=== PATIENT | male | born 1960 | race Caucasian/White ===

== ENCOUNTER 2018-04-20 06:36 | Day surgery (SDC) | payer OTHER ==
--- NOTE | 2018-04-04 15:27 | GHP ---
DATE OF ADMISSION: 04/20/2018 DATE OF SURGERY: The patient will be an a.m. admission for surgery at [facility] on April 20, 2018. PROBLEM: Left hip arthritis. HISTORY OF PRESENT ILLNESS: The patient is a 58-year-old man admitted for a left total hip arthropla sty. He has severe bilateral hip degenerative arthritis. About 4 weeks ago, he was scheduled for a left total hip arthroplasty by Dr. Yang. That surgery had to be canceled because of a skin abno rmality in the flexor crease of the hip joint. Dr. Yang did not think he is a candidate for ant erior hip replacement. He has had progressive pain in both hips for the past 1-1/2 years. Both hips have been very painful for the past 3 months. He is having daily pain and night pain. Walking and standing are painful. His activities are very limited. He is using ibuprofen daily. He has trouble putting on his shoes and socks. He tried 9 months of physical therapy, but it did not help. He has had 3 cortisone injections in the left hip, which helped for a few months. He has failed nonsurgica l treatment. He is admitted for a left total hip arthroplasty. He is going to need to have the othe r hip done as well. PAST MEDICAL HISTORY: He is treated for elevated cholesterol and hypertension. No history of heart disease, stents, DVT, hepatitis, MRSA staph infections, sleep apnea, or bleeding disorders. CURRENT MEDICATIONS: Atorvastatin 10 mg per day, lisinopril 10 mg per day. He takes a baby aspirin and he has been using ibuprofen. He will stop both of those 5 days prior to surgery. ALLERGIES: Drug allergy: None. Metal allergy: None. Latex allergy: None. SOCIAL HISTORY: The patient does not smoke cigarettes and occasionally drinks alcohol. He does [employer] work. He is . PHYSICAL EXAMINATION: VITAL SIGNS: Height 5 feet 10-1/2 inches. Weight 225 pounds. BMI 31.8. EYE S: Conjunctivae and sclerae are clear. Pupils are round and reactive. MOUTH: Good oral hygiene. No loose teeth. CHEST: Clear. HEART: Regular rhythm. No murmurs. EXTREMITIES: Exam of his left hip shows full hip extension and 70 degrees of flexion. As he flexes the hip, he develops a 10 degr ee external rotation contracture and has no further internal or external rotation. Abduction 20 degr ees. ADMITTING IMPRESSION: 1. Bilateral hip degenerative arthritis. He is prepared for a left total hip arthroplasty. 2. Treatment for hypertension. 3. Treatment for elevated cholesterol. 4. History of lumbosacral spine fusion. PLAN: He will undergo a left total hip arthroplasty. The surgery has been described to him, alejandro gutiérrez the risks, complications, expectations, and recovery time. I have discussed with him the risk of dislocation, leg length inequality, infection, and sciatic nerve injury. He understands that he is y oung for any type of hip arthroplasty and may need revision surgery in the future. Because of his previous lumbosacral spine fusion, he is at greater risk for hip instability and dislo cation. I will be intentionally lengthening the left side a small amount to make him more stable. I will lengthen the opposite side a similar amount when I do the opposite hip. All his questions have been answered, and he consents to surgery. /[id number]/MODL
[2018-04-20] MEDS ORDERED: DEXAMETHASONE 4 MG/ML VIAL IVP ONE (07:30)
[2018-04-20] MEDS ORDERED: ONDANSETRON 4 MG/2 ML VIAL IVP ONE (07:30)
[2018-04-20] MEDS ORDERED: GABAPENTIN 300 MG CAP PO ONE (07:30)
[2018-04-20] MEDS ORDERED: ceFAZolin 2 GM/DEXTROSE 100 ML IV ONE (07:30)
[2018-04-20] MEDS ORDERED: FAMOTIDINE 20 MG TAB PO ONE (07:30)
[2018-04-20] MEDS ORDERED: ACETAMINOPHEN 325 MG TAB PO ONE (07:30)
[2018-04-20] MEDS ORDERED: LR 1,000 ML IV ONE (07:33)
[2018-04-20] MEDS ORDERED: LIDOCAINE 1% 2 ML INJ ID PRN (07:33)
--- NOTE | 2018-04-20 08:18 | PDANEPAE ---
ANE Past Medical History - Cardiovascular History Hx Hypertension: Yes Hx Arrhythmias: No Hx Chest Pain: No Hx Coronary Artery / Peripheral Vascular Disease: Yes Hx CHF / Valvular Disease: No Hx Palpitations: No Cardiovascular History Comment: pcp monitors bp medications. high chol. CAD - Pulmonary History Hx COPD: No Hx Asthma/Reactive Airway Disease: No Hx Recent Upper Respiratory Infection: No Hx Oxygen in Use at Home: No Hx Sleep Apnea: No Sleep Apnea Screening Result - Last Documented: Positive Pulmonary History Comment: amilcar triggers - Neurologic History Hx Cerebrovascular Accident: No Hx Seizures: No Hx Dementia: No - Endocrine History Hx Diabetes: No Hypothyroid: No Hyperthyroid: No Obesity: yes, mild Endocrine History Comment: pcp is following possible torrey's having labs redrawn 03/30/18 and he will fax results to us - Renal History Hx Renal Disorders: No - Liver History Hx Hepatic Disorders: No - Neurological & Psychiatric Hx Hx Neurological and Psychiatric Disorders: No - Cancer History Hx Cancer: No - Congenital Disorder History Hx Congenital Disorders: No - GI History Hx Gastrointestinal Disorders: Yes Gastrointestinal History Comment: hx of barretts esophagus that was causing chest pains a couple years ago. reflux- no symptoms currently - Other Health History Other Health History: wears glasses - Chronic Pain History Chronic Pain: Yes (bilateral hips) - Surgical History Prior Surgeries: 1979 spinal fusion l5-s1. knee scope ANE Review of Systems Review of Systems: - Exercise capacity Exercise capacity: limited by disability METS (RN): 4 METS ANE Patient History - Allergies Allergies/Adverse Reactions: No Known Allergies Allergy (Verified 03/25/18 15:18) - Home Medications Home Medications: Aspirin EC 81 mg (*) 03/25/18 [Last Taken 1 Week Ago ~04/13/18] Atorvastatin Calcium 03/25/18 [Last Taken 04/19/18] Herbals/Supplements -Info Only 03/25/18 [Last Taken 04/10/18] Lisinopril 03/25/18 [Last Taken 04/19/18] - Anes Hx Anes Hx: no prior problems - Smoking Hx Smoking Status: Never smoked Marijuana use: No - Alcohol Use Alcohol Use: Occasionally - Family Anes Hx Family Anes Hx: neg - N/A Family Hx Anesthesia Complications: none ANE Labs/Vital Signs - Vital Signs Height: 180.34 cm Weight: 102.058 kg ANE Physical Exam - Airway Neck exam: FROM Mallampati Score: Class 2 Mouth exam: normal dental/mouth exam - Pulmonary Pulmonary: no respiratory distress, no rales or rhonchi, clear to auscultation - Cardiovascular Cardiovascular: regular rate and rhythym, no murmur, rub, or gallop - ASA Status ASA Status: II ANE Anesthesia Plan Anesthesia Plan: MAC, spinal Total IV Anesthesia: No
--- NOTE | 2018-04-20 08:56 | PDHPUP ---
History & Physical Update H&P update statement: This history and physical update is based on an assessment of the patient which was completed after admission or registration (within 24 hours), but prior to the surgery/procedure. H&P update: H&P reviewed & patient examined
[2018-04-20] MEDS ORDERED: ROPIVACAINE 0.2% 80 MG, EPINEPHrine 0.2 MG, KETOROLAC TROMETHAMINE 30 MG in SYRINGE 0 ML IU ONE (09:00)
[2018-04-20] MEDS ORDERED: TRANEXAMIC ACID 3,000 MG in NS (SYRINGE) 50 ML IRR ONE (09:00)
[2018-04-20] MEDS ORDERED: TRANEXAMIC ACID 2,000 MG in NS 100 ML IV ONE (09:00)
[2018-04-20] MEDS ORDERED: POVIDONE-IODINE 20 ML in SODIUM CL IRRIG SOLUTION 500 ML IRR ONE (09:00)
[2018-04-20] MEDS ORDERED: TRANEXAMIC ACID 3,000 MG/50 ML BAG IRR ONE (09:09)
[2018-04-20] MEDS ORDERED: ceFAZolin 1 GM/5 ML SYR ONE (09:10)
[2018-04-20] MEDS ORDERED: MIDAZOLAM 2 MG/2 ML VIAL IVP ONE (09:19)
[2018-04-20] MEDS ORDERED: MIDAZOLAM 2 MG/2 ML VIAL ONE (09:21)
[2018-04-20] MEDS ORDERED: fentaNYL 100 MCG/2 ML INJ ONE (09:25)
[2018-04-20] MEDS ORDERED: PROPOFOL/EMULSION 500 MG/50 ML BOTTLE IV ONE ×2 (09:25→10:37)
[2018-04-20] MEDS ORDERED: BUPIVACAINE/DEXTROSE 7.5MG/ML 2 ML SPINAL AMP SP ONE ×2 (09:26→09:59)
[2018-04-20] MEDS ORDERED: ePHEDrine SULFATE 25 MG/5 ML SYR ONE (10:00)
[2018-04-20] MEDS ORDERED: NALOXONE HCL 0.4 MG/ML INJ IVP PRN (10:43)
[2018-04-20] MEDS ORDERED: PHENYLEPHRINE HCL 100 MCG/ML SYR IVP PRN (10:43)
[2018-04-20] MEDS ORDERED: LR 500 ML IV PRN (10:43)
[2018-04-20] MEDS ORDERED: ONDANSETRON 4 MG/2 ML VIAL IVP PRN ×2 (10:43→11:39)
[2018-04-20] MEDS ORDERED: MEPERIDINE 25 MG/0.5 ML AMP IVP PRN (10:43)
[2018-04-20] MEDS ORDERED: PHENYLEPHRINE HCL 100 MCG/ML SYR ONE (11:13)
--- NOTE | 2018-04-20 11:24 | POSTOPPROG ---
Post Op Note Date of Operation: 04/20/18 Surgeon: Mukul Samuel Timber Sizer: Janet Anesthesiologist: Dr. Dagoberto Curiel Post-op Diagnosis: Left hip severe degenerative arthritis Procedure: Left total hip arthroplasty Inf/Abcess present in the surg proc area at time of surgery?: No EBL: [id number]
[2018-04-20] MEDS ORDERED: CYCLOBENZAPRINE 10 MG TAB PO PRN (11:39)
[2018-04-20] MEDS ORDERED: PROMETHAZINE HCL 25 MG SUPPR PR PRN (11:39)
[2018-04-20] MEDS ORDERED: traMADol 50 MG TAB PO PRN (11:39)
[2018-04-20] MEDS ORDERED: LACTULOSE 20 GM/30 ML UDCUP PO PRN (11:39)
[2018-04-20] MEDS ORDERED: diphenhydrAMINE 25 MG CAP PO PRN (11:39)
[2018-04-20] MEDS ORDERED: POLYETHYLENE GLYCOL 3350 17 GM PKT PO PRN (11:39)
[2018-04-20] MEDS ORDERED: oxyCODONE IR 5 MG TAB PO PRN (11:39)
[2018-04-20] MEDS ORDERED: MAGNESIUM HYDROXIDE 30 ML UDCUP PO PRN (11:39)
[2018-04-20] MEDS ORDERED: ONDANSETRON DISINTEGRATING 4 MG TAB PO PRN (11:39)
[2018-04-20] MEDS ORDERED: DIPHENOXYLATE/ATROPINE LOMOTIL 1 TAB PO PRN (11:39)
[2018-04-20] MEDS ORDERED: BISACODYL 10 MG SUPP PR PRN (11:39)
[2018-04-20] MEDS ORDERED: NS 500 ML IV PRN (11:39)
[2018-04-20] MEDS ORDERED: METOCLOPRAMIDE 10 MG/2 ML VIAL IVP PRN (11:39)
[2018-04-20] MEDS ORDERED: TEMAZEPAM 15 MG CAP PO PRN (11:39)
[2018-04-20] MEDS ORDERED: PROMETHAZINE HCL 25 MG/ML INJ IVP PRN (11:39)
[2018-04-20] MEDS ORDERED: LR 1,000 ML IV SCH (12:00)
[2018-04-20] MEDS ORDERED: ACETAMINOPHEN 325 MG TAB PO SCH (12:00)
[2018-04-20] MEDS ORDERED: KETOROLAC 15 MG/1 ML SDV IVP SCH (12:00)
--- NOTE | 2018-04-20 12:27 | GOP ---
DATE OF OPERATION: 04/20/2018 SURGEON: Mukul Samuel MD HEEL SEAT POUNDER: Benjy Bray and Nadeem Constantino. ANESTHESIA: A combination of Marcaine, spinal, and IV sedation. ANESTHESIOLOGIST: Shae Curiel DO. PREOPERATIVE DIAGNOSIS: Left hip severe degenerative arthritis. POSTOPERATIVE DIAGNOSIS: Left hip severe degenerative arthritis. PROCEDURE PERFORMED: 04/20/2018, a left total hip arthroplasty, ceramic femoral head on highly cross -link polyethylene cup liner. FINDINGS: ESTIMATED BLOOD LOSS: About 500 mL. DESCRIPTION OF PROCEDURE: The patient was given 2 g of IV Ancef preoperatively within 60 minutes of surgery. He also received 1000 mg of IV tranexamic acid. He was placed on the operating room table and given spinal anesthesia with Marcaine by Dr. Curiel. He was then placed supine and given IV sedation. A Arndt catheter was not used. He wore a MARÍA stocking and SCD on the nonoperative leg. He was rolled to the right lateral decubitus position. The position was secured with the pegboard ta ble attachment. An axillary roll was used, and all pressure points were carefully padded. I was car eful to lock his pelvis in a vertical position. His left hip was extremely stiff. His perineum was isolated with plastic adhesive drapes. The left hip and left lower extremity were prepped with Chlor aPrep. They were draped free using sterile sheets, stockinette, and Ioban plastic drapes. The [employer] time-out was performed to verify the correct surgical side and site and the correct patient identity. The [place] time-out was also performed. I made a 6-inch straight oblique posterolateral hip skin incision. Subcutaneous tissues were sharply divided, and hemostasis was obtained using electrocautery. His fascia lauren was identified and split along the axis of its fibers. I curved posteriorly and proximally split the fascia of gluteus maxim us and bluntly split the muscle fibers in line with their orientation. The Charnley self-retaining r etractor was inserted. His sciatic nerve was located, partially exposed, and protected throughout th e procedure. The external rotators and the posterior hip capsule were divided as separate layers at the base of the femoral neck, tagged, and reflected posteriorly. A smooth 8-inch Steinmann pin was i nserted vertically into the ilium superior to the acetabulum. An 8-inch drill bit was inserted verti mikala into the greater trochanter and parallel to the first pin. The distance between the 2 was catie ured for leg length reference. He was a large man and we were working in a deep incision. His femor al head was dislocated posteriorly. Severe degenerative changes were present on the femoral head. T he femoral neck was osteotomized at the appropriate level and inclination. I was careful to preserve all the posterior capsule and most of the anterior capsule. The remnant of his damaged labrum was excised. I prepared the femur first. This allowed me to exerciser horse the amount of natural femoral neck anteversion. This, in turn, allowed me to later determine the correct amount of cup anteversion. He had approxi mately 10 degrees of natural femoral neck anteversion. His canal was opened first laterally with a b ox chisel. I then hand broached sequentially up to a size 6. The size 6 Accolade II broach was used as a trial stem. I was careful to lateralize adequately. Appropriate retractors were inserted to expose the acetabulum. The acetabulum was reamed sequentiall y up to 58 mm. I selected a 58 mm Alexander Tritanium Trident II cluster hole hemispherical shell. Th is was tapped securely into place in the proper degree of inclination anteversion. I used the transv erse acetabular ligament and other acetabular bony landmarks to help me properly orient the cup. I performed a series of trial reductions to determine length and stability. I concluded that the siz e 6 high offset stem with a +2.5 mm neck and a 36 mm head with a 0 degree trial liner gave me the pro per combination of appropriate length and good anterior and posterior stability. I was intentionally lengthening him to create more stability. In a few months I am going to be doing his other hip and I will lengthen that a similar amount. The 0 degree [place] X3 highly cross-linked polyethylene liner was inserted and tapped securely into place. The [place] Accolade II stem in a size 6 with high offset was inserted and was very tight fit . He had very good quality bone. I did 1 final trial reduction and confirmed that the +2.5 mm neck length with a 36 mm head was the proper combination. The Alexander Biolox Delta ceramic head with an o utside diameter of 36 mm and a neck length of +2.5 mm was tapped securely onto the clean trunnion. T he acetabulum was irrigated, cleaned, and the hip was reduced 1 final time. He had excellent anterio r and posterior stability and appropriate length. 40 mL of the joint anesthetic cocktail were injected into the capsule, the deep musculature, and the subcutaneous tissues around the skin edges. The joint was thoroughly irrigated 1 final time with a d ilute Betadine solution. His sciatic nerve was reinspected and looked unharmed. 50 mL of tranexamic acid solution was irrigated into the wound and left in place. The external rotators and the posteri or hip capsule were repaired in separate layers with #2 FiberWire sutures through drill holes in the greater trochanter. The fascia lauren was closed first with 2 interrupted [id number]-uf-vsloy #2 FiberWire sutures followed by a running #2 barbed Ethicon Stratafix PDO suture. The subcutaneous tissues were closed in layers with interrupted 2-0 Monocryl followed by a running 0 barbed Ethicon Stratafix Whiteside derm suture. The skin was closed with a running 3-0 barbed Ethicon Stratafix Monoderm subcuticular s uture. The skin edges were reapproximated and sealed with Dermabond glue. The wound was covered wit h a large Mepilex waterproof dressing. The sterile Mepilex sacral dressing was also applied. A long-leg MARÍA stocking and SCD were applied to his left lower extremity. He wore a stocking and SCD on the opposite leg during the procedure. An abduction pillow was placed between his knees. He was awakened from anesthesia and rolled to the supine position on his [facility]. He was taken to PACU in satisfactory condition. There were no recognized intraoperative complications. COUNTS: The sponge and needle count were correct on 2 occasions. I used a Alexander Trident II titanium hemispherical cluster hole hemispherical shell with an outside d iameter of 58 mm. The liner was a Alexander X3 0-degree highly cross-linked liner with an inside diame ter of 36 mm. The femoral component was a high offset Accolade II stem in a size 6 and press-fit. T he femoral head was a Alexander Biolox Delta ceramic head with a +2.5 mm neck length and a 36 mm outsid e diameter. Benjy Bray and Nadeem Constantino acted as surgical assistants. Their assistance was a medical necess ity for safe completion of the procedure. /[id number]/MODL
--- NOTE | 2018-04-20 13:08 | POSTANESTH ---
Post Anesthetic Evaluation Cardiovascular Status: Normal, Stable Respiratory Status: Normal, Stable Level of Consciousness/Mental Status: Can Participate in Eval Pain Control: Adequate, Prn Tx Ordered Nausea/Vomiting Control: Adequate, Prn Tx Ordered Complications Possibly Related to Anesthesia: None Noted
[2018-04-20] MEDS ORDERED: KETOROLAC 15 MG/1 ML SDV ONE (13:29)
[2018-04-20] MEDS ORDERED: oxyCODONE IR 5 MG TAB ONE (13:29)
[2018-04-20 16:12] VITALS: BP 94/79
[2018-04-20] MEDS ORDERED: ceFAZolin 2 GM/DEXTROSE 100 ML IV SCH (18:00)
[2018-04-20] MEDS ORDERED: FAMOTIDINE 20 MG TAB PO SCH (21:00)
[2018-04-20] MEDS ORDERED: SENNOSIDES/DOCUSATE SODIUM TAB PO SCH (21:00)
[2018-04-20] MEDS ORDERED: ASPIRIN 325 MG TAB PO SCH (21:00)
--- NOTE | 2018-04-21 07:54 | GDS ---
ADMISSION DIAGNOSIS: Left hip severe degenerative arthritis. DISCHARGE DIAGNOSIS: Left hip severe degenerative arthritis. OPERATION PERFORMED: 04/20/2018: A left total hip arthroplasty. POSTOPERATIVE COMPLICATIONS: None. CONDITION ON DISCHARGE: Improved. DESCRIPTION OF HOSPITAL COURSE: The patient was admitted to the hospital on the morning of surgery. His preoperative CBC was normal. The same day, under a combination of Marcaine, spinal, and IV keke tion, he underwent a left total hip arthroplasty. Postoperatively, he was seen by Physical Therapy. He was discharged the same day. DISPOSITION: The patient is discharged to his home. He will have outpatient physical therapy. He m ay progress to full weightbearing on the left as tolerated. Continue aspirin 325 mg p.o. daily for 2 1 days. He has prescriptions for oxycodone, tramadol, and Celebrex for pain control. Use MARÍA stocki ngs for 1 week. Use an abduction pillow in bed for 3 weeks. I will see him back in the office in 3 weeks. If there any problems, he is to call me at the office. /[id number]/MODL
[2018-04-21] MEDS ORDERED: FERROUS SULFATE 325 MG TAB PO SCH (08:00)
== END 2018-04-20 17:00 | disposition home or self-care (01) ==
LOC: FSGY 06:36 → EDSTATUS 09:00 → F3E 11:53 → UNDOADMOB 11:53 → UNDODISOB 17:00 → FSGY 17:00
PROVIDERS: ATTEND Orthopaedic Surgery
PROC: 0SRB04Z Replacement of Left Hip Joint with Ceramic on Polyethylene Synthetic Substitute, Open Approach (ICD-10-PCS; principal; 2018-04-20 09:00)
DX: M16.0 Bilateral primary osteoarthritis of hip (principal); I10 Essential (primary) hypertension; Z98.1 Arthrodesis status
CPT/HCPCS: 97116-GP; 97161-GP; 97165-GO; 97530-GP; J0690; J1100; J1885; J2250; J2370; J2405; J2704; J3010